=== PATIENT | male | born 1995 | race Caucasian/White ===

== ENCOUNTER 2022-07-24 21:16 | Emergency (ER) | payer MEDICAID ==
[2022-07-24] MEDS ORDERED: Acetaminophen/HYDROcodone 325-5 MG Tab PO ONE (22:55)
== END 2022-07-25 00:10 | disposition home or self-care (01) ==
LOC: JD.ED 21:16
DX: M25.511 Pain in right shoulder (principal); I10 Essential (primary) hypertension; J45.909 Unspecified asthma, uncomplicated; Z72.0 Tobacco use
CPT/HCPCS: 73030; 99283; A9270